=== PATIENT | female | born 1965 | race Two or more races ===

== ENCOUNTER 2023-04-12 09:56 | Emergency (ER) | payer OTHER ==
[~2023-04-12] VITALS: Ht 165.1 cm; Wt 81.8 kg
[2023-04-12 11:15] VITALS: BP 184/76; PULSE 70; RESP 16; TEMP 96.9; O2SAT 98
[2023-04-12] MEDS ORDERED: ACETAMINOPHEN 500 MG TAB PO ONE (11:30)
[2023-04-12] MEDS ORDERED: IBUP-1456 PO ×2 (12:24)
[2023-04-12] MEDS ORDERED: METH-1182 PO (12:24)
[2023-04-12] MEDS ORDERED: ACET-1080 PO (12:37)
== END 2023-04-12 12:28 | disposition home or self-care (01) ==
LOC: ER 09:56
DX: S16.1XXA Strain of muscle, fascia and tendon at neck level, initial encounter (principal); S39.012A Strain of muscle, fascia and tendon of lower back, initial encounter; S29.011A Strain of muscle and tendon of front wall of thorax, initial encounter; I10 Essential (primary) hypertension; F17.210 Nicotine dependence, cigarettes, uncomplicated; V43.62XA Car passenger injured in collision with other type car in traffic accident, initial encounter; Y93.89 Activity, other specified; Y92.488 Other paved roadways as the place of occurrence of the external cause; Y99.8 Other external cause status
CPT/HCPCS: 71046; 72040; 72100; 93005